=== PATIENT | male | born 1960 | race African-American/Black ===

== ENCOUNTER 2017-02-07 09:18 | Inpatient (IN) | payer SELFPAY ==
[~2017-02-07] VITALS: Ht 188 cm; Wt 72.7 kg
[2017-02-07 09:46] LABS: Basophils # (auto) 0 uL; Basophils % (auto) 0.3 % (0.0-2.0); CONDITION Y; Eosinophils # (auto) 0 uL; Eosinophils % (auto) 0.4 % (0.0-7.0); Hematocrit 38.7 % (41.0-53.0); Hemoglobin 13.5 g/dL (13.5-17.5); Lymphocytes # (auto) 0.9 uL; Lymphocytes % (auto) 10.8 % (10.0-50.0); Mean Corpuscular Hemoglobin 32.3 pg (28.0-32.0); Mean Corpuscular Hgb Conc. 34.8 g/dL (32.0-36.0); Mean Corpuscular Volume 92.7 fL (80.0-100.0); Mean Platelet Volume 7.4 fL (7.4-10.4); Monocytes # (auto) 0.5 uL; Monocytes % (auto) 5.7 % (0.0-12.0); Neutrophils % (auto) 82.8 % (37.0-80.0); Platelet Count (auto) 240 10^3/uL (140-450); Red Cell Distribution Width 13.5 % (11.6-16.0); White Blood Cell 8.5 10^3/uL (4.4-10.8)
[2017-02-07 10:11] LABS: Albumin 3.7 g/dL (3.4-5.0); Alkaline Phosphatase 40 U/L (45-117); Anion Gap 7 (5-15); Aspartate Aminotransferase 28 U/L (15-37); BUN/Creatinine Ratio 9.4; Bilirubin, Total 0.2 mg/dL (0.2-1.0); Blood Urea Nitrogen 8 mg/dL (7-18); Calcium 9.5 mg/dL (8.5-10.1); Carbon Dioxide 28 mmol/L (21-32); Chloride 107 mmol/L (98-107); GFR African American 119 mL/min; GFR Non-African American 98 mL/min; Glucose 100 mg/dL (74-106); Magnesium 2.2 mg/dL (1.6-2.6); Potassium 3.9 mmol/L (3.5-5.1); Sodium 142 mmol/L (136-145)
[2017-02-07] MEDS ORDERED: LORazepam 0.5 MG TAB PO PRN (11:45)
[2017-02-07] MEDS ORDERED: MORPHINE SULFATE 4 MG/ML SYRG IV PRN (11:45)
[2017-02-07] MEDS ORDERED: LACTULOSE 20Gm/30ML SOLN PO PRN (11:45)
[2017-02-07] MEDS ORDERED: HYDROcodone-ACET 5/325MG TAB PO PRN (11:45)
[2017-02-07] MEDS ORDERED: MORPHINE SULF INJ 2 MG/ML SYRINGE 1ML IV PRN (11:45)
[2017-02-07] MEDS ORDERED: ASPirin 81 mg TAB PO ONE (11:45)
[2017-02-07] MEDS ORDERED: PROMETHAZINE HCL 25 MG/ML 1ML IV PRN (11:45)
[2017-02-07] MEDS ORDERED: ACETAMINOPHEN 500 MG TAB PO PRN (11:45)
[2017-02-07] MEDS ORDERED: TEMAZEPAM 15 MG CAP PO PRN (11:45)
[2017-02-07] MEDS: SODIUM CHLORIDE 0.9% 1,000 ML IV SCH (12:12)
[2017-02-07] MEDS: NITROGLYCERIN 0.4 MG SL TAB SL PRN ×3 (15:18→15:33)
[2017-02-07] MEDS ORDERED: PANTOPRAZOLE 40 MG TAB PO ONE (16:30)
[2017-02-07 19:15] VITALS: BP 115/75
[2017-02-07 19:30] VITALS: BP 115/75
[2017-02-07 21:50] VITALS: BP 118/78
[2017-02-08] MEDS: SODIUM CHLORIDE 0.9% 1,000 ML IV SCH (01:16)
[2017-02-08 05:05] VITALS: BP 109/73
[2017-02-08 08:00] VITALS: BP 125/80
[2017-02-08] MEDS: ASPirin 81 mg TAB PO SCH (09:43)
[2017-02-08] MEDS: PANTOPRAZOLE 40 MG TAB PO SCH (09:44)
[2017-02-08 12:55] VITALS: BP 138/90
[2017-02-08 17:16] VITALS: BP 131/86
[2017-02-08] MEDS ORDERED: ATORVASTATIN 20 MG TAB PO SCH (22:00)
[2017-02-08 23:11] VITALS: BP 145/93
[2017-02-09 05:22] VITALS: BP 118/82
[2017-02-09 06:47] LABS: Cholesterol 163 mg/dL (< 200); HDL Cholesterol 66 mg/dL (40-59); LDL Cholesterol 87 mg/dL (< 100); Triglycerides 69 mg/dL (< 150)
[2017-02-09 09:10] VITALS: BP_SYST 112; BP_SYST 132; BP_DIAS 76; BP_DIAS 90
[2017-02-09] MEDS: PANTOPRAZOLE 40 MG TAB PO SCH (10:00)
[2017-02-09] MEDS: ASPirin 81 mg TAB PO SCH (10:00)
[2017-02-09 10:58] VITALS: BP 132/90
== END 2017-02-09 12:30 | disposition home or self-care (01) | DRG 313 ==
LOC: ER 09:18 → TELE 09:19 → TELE-EAST 18:45
PROVIDERS: ADMIT Internal Medicine; ATTEND Internal Medicine Pulmonary Disease
DX: R07.89 Other chest pain (principal); F17.210 Nicotine dependence, cigarettes, uncomplicated; Z80.51 Family history of malignant neoplasm of kidney; Z80.0 Family history of malignant neoplasm of digestive organs
CPT/HCPCS: 36415; 71010; 76705; 80053; 80061; 80307; 82550; 83690; 83735; 84484; 85025; 85379; 85652; 86141; 93005; 94761; 96374